=== PATIENT | male | born 1965 | race Caucasian/White ===

== ENCOUNTER 2017-01-02 04:27 | Emergency (ER) | payer OTHER ==
[~2017-01-02] VITALS: Ht 182.9 cm; Wt 87.6 kg
[~2017-01-02 04:27] MED LIST: ADVIL,NUPRIN,M200 MG PO; ASPIR-LOW81 MG PO; Aspirin E.C. PO; CHERATUSSIN AC473 ML PO; COUMADIN,JANTO7.5 MG PO; Ceftin PO; FLEXERIL10 MG PO; IBUPROFEN800 MG PO; LISINOPRIL20 MG PO; MOTRIN800 MG PO; Motrin PO; NAPROSYN500 MG PO; NAPROXEN500 MG PO; PERCOCET 5/31 TABLET PO; PRAVASTATIN SOD40 MG PO; PRINIVIL20 MG PO; Robitussin AC,Tussi- PO; TORADOL10 MG PO; VICODIN 5-3001 EACH PO; VOLTAREN75 MG PO; ZOFRAN ODT4 MG PO; Zithromax PO
[2017-01-02] MEDS ORDERED: MORPHINE SULFATE (05:43)
[2017-01-02] MEDS ORDERED: endocet (05:43)
[2017-01-02 06:43] VITALS: BP 145/89
== END 2017-01-02 06:45 | disposition home or self-care (01) ==
LOC: EME 04:27
DX: S80.12XA Contusion of left lower leg, initial encounter (principal); W01.0XXA Fall on same level from slipping, tripping and stumbling without subsequent striking against object, initial encounter; Y92.002 Bathroom of unspecified non-institutional (private) residence as the place of occurrence of the external cause
CPT/HCPCS: 73552; 99281; 99284

== ENCOUNTER 2017-01-08 04:21 | Emergency (ER) | payer OTHER ==
[~2017-01-08] VITALS: Ht 182.9 cm; Wt 84.5 kg
[~2017-01-08 04:21] MED LIST changes: +MORPHINE SULFATE; +endocet
[2017-01-08 05:24] VITALS: BP 147/98
== END 2017-01-08 05:28 | disposition home or self-care (01) ==
LOC: EME 04:21
DX: S83.92XA Sprain of unspecified site of left knee, initial encounter (principal); W19.XXXA Unspecified fall, initial encounter
CPT/HCPCS: 99281; 99284

== ENCOUNTER 2017-01-22 00:55 | Emergency (ER) | payer OTHER ==
[~2017-01-22] VITALS: Ht 182.9 cm; Wt 84.4 kg
[2017-01-22 02:06] LABS: HEMATOCRIT 39.6 % (38.0-50.0); MCH 31.2 PG (29.0-34.0); MCHC 33.8 G/DL (30.0-36.0); MCV 92.1 FL (86-99); MEAN PLAT.VOLUME 9.1 uM^3 (9.0-12.4); PLATELET COUNT 259 K/uL (156-360); RBC DIS.WIDTH-CV 12.3 % (11.8-14.6); RBC DIS.WIDTH-SD 41.6 % (39-53); WHITE BLOOD COUNT 7.4 K/uL (4.1-10.2)
[2017-01-22 02:16] LABS: CHLORIDE 103 mEq/L (99-109); SODIUM 139 mEq/L (136-147)
[2017-01-22 02:18] LABS: GLUCOSE 78 mg/dL (70-99)
[2017-01-22 02:19] LABS: ANION GAP 9 MEQ/L (2-14)
[2017-01-22 02:21] LABS: GFR ESTIMATE (CALCULATED) > 59 mL/min/
[2017-01-22 02:22] LABS: UREA NITROGEN (BUN) 15 mg/dL (9-23)
[2017-01-22 02:54] LABS: ADD MIUA? YES; BILIRUBIN NEGATIVE; BLOOD NEGATIVE; COLOR YELLOW ((YELLOW)); GLUCOSE (STRIP) NEGATIVE; KETONES 5; LEUKOCYTES NEGATIVE; NITRITE NEGATIVE; PROTEIN (STRIP) 30
[2017-01-22 03:02] LABS: BACTERIA 1+ /HPF; CALCIUM OXALATE CRYSTALS 3+ /HPF; EPITHELIAL CELLS RARE /HPF; MUCUS 2+ /LPF; RED BLOOD CELLS 0-5 /HPF (0-5); WHITE BLOOD CELLS 0-5 /HPF (0-5)
[2017-01-22 03:54] VITALS: BP 168/122
== END 2017-01-22 03:54 | disposition home or self-care (01) ==
LOC: EME 00:55
PROVIDERS: Emergency Medicine
DX: S39.92XA Unspecified injury of lower back, initial encounter (principal); W01.0XXA Fall on same level from slipping, tripping and stumbling without subsequent striking against object, initial encounter; R31.9 Hematuria, unspecified; I10 Essential (primary) hypertension; F32.9 Major depressive disorder, single episode, unspecified; Z86.718 Personal history of other venous thrombosis and embolism
CPT/HCPCS: 74176; 80048; 81003; 85027; 87086; 99281; 99284

== ENCOUNTER 2017-02-26 17:35 | Observation (INO) | payer OTHER ==
[~2017-02-26] VITALS: Ht 182.9 cm; Wt 84.6 kg
[~2017-02-26 17:35] MED LIST changes: +ENDOCET 5-3251 EACH PO; -LISINOPRIL20 MG PO; +LISINOPRIL30 MG PO; +MORPHINE SULFAT15 M1 PO; -MORPHINE SULFATE; -endocet
[2017-02-26 18:37] LABS: HEMATOCRIT 47.8 % (38.0-50.0); MCH 31.5 PG (29.0-34.0); MCHC 34.3 G/DL (30.0-36.0); MCV 91.7 FL (86-99); MEAN PLAT.VOLUME 9.1 uM^3 (9.0-12.4); PLATELET COUNT 440 K/uL (156-360); RBC DIS.WIDTH-CV 11.9 % (11.8-14.6); RBC DIS.WIDTH-SD 39.9 % (39-53); RED BLOOD COUNT 5.21 M/uL (4.00-5.50); WHITE BLOOD COUNT 7.5 K/uL (4.1-10.2)
[2017-02-26 18:44] LABS: D-DIMER ELISA < 150.00 ng/mLDDU (<230)
[2017-02-26 18:45] LABS: CHLORIDE 99 mEq/L (99-109); POTASSIUM 4.9 mEq/L (3.7-5.4); SODIUM 135 mEq/L (136-147)
[2017-02-26 18:47] LABS: GLUCOSE 89 mg/dL (70-99)
[2017-02-26 18:48] LABS: ANION GAP 7 MEQ/L (2-14)
[2017-02-26 18:50] LABS: GFR ESTIMATE (CALCULATED) > 59 mL/min/
[2017-02-26 18:51] LABS: UREA NITROGEN (BUN) 15 mg/dL (9-23)
[2017-02-26 18:59] LABS: TROP-I INTERPRETATION NEGATIVE; TROPONIN-I < 0.01 ng/mL (0.0-0.30)
[2017-02-26] MEDS ORDERED: PRAVACHOL40 MG PO (19:43)
[2017-02-26] MEDS ORDERED: ECOTRIN325 MG PO (19:44)
[2017-02-26] MEDS ORDERED: ONE-A-DAY ESSE1 EAC1 PO (19:44)
[2017-02-26] MEDS ORDERED: PAXIL40 MG PO (19:44)
[2017-02-26] MEDS ORDERED: PAXIL10 MG PO (19:44)
[2017-02-26 20:29] LABS: SERUM ETHYL ALCOHOL < 10 mg/dL
[2017-02-26 20:46] VITALS: BP 144/81
[2017-02-27 01:22] LABS: TROP-I INTERPRETATION NEGATIVE; TROPONIN-I < 0.01 ng/mL (0.0-0.30)
[2017-02-27 07:36] LABS: HDL CHOLESTEROL 49 MG/DL (Desirable>=40); LDL CHOLESTEROL 81 mg/dL (Desirable<100); NON-HDL CHOLESTEROL 105 mg/dL (Desirable<160); TOTAL CHOLESTEROL 154 mg/dL (Desirable<200); TRIGLYCERIDES 119 MG/DL (Normal: <150)
[2017-02-27 07:40] LABS: TROP-I INTERPRETATION NEGATIVE; TROPONIN-I < 0.01 ng/mL (0.0-0.30)
[2017-02-27] MEDS ORDERED: LOPRESSOR25 MG PO (09:50)
[2017-02-27] MEDS ORDERED: ASPIRIN81 M2 PO (09:50)
[2017-02-27 16:00] VITALS: BP 160/78
== END 2017-02-27 17:11 | disposition home or self-care (01) ==
LOC: EME 17:35 → EDOF 19:41 → 5WEST 19:41 → ENRESERV 19:42 → 5WEST 20:38
PROVIDERS: Physician Assistant Medical
DX: R07.89 Other chest pain (principal); G89.29 Other chronic pain; M94.0 Chondrocostal junction syndrome [Tietze]; I10 Essential (primary) hypertension; F41.9 Anxiety disorder, unspecified; F32.9 Major depressive disorder, single episode, unspecified; E78.5 Hyperlipidemia, unspecified; Z86.718 Personal history of other venous thrombosis and embolism; M19.90 Unspecified osteoarthritis, unspecified site; Z82.49 Family history of ischemic heart disease and other diseases of the circulatory system; Z79.82 Long term (current) use of aspirin
CPT/HCPCS: 71020; 80048; 80061; 80306 90; 81003; 84484; 85027; 85379; 93005; 99281; 99285; G0378; G0480; J1650; J1885; J2270

== ENCOUNTER 2017-06-04 19:54 | Emergency (ER) | payer OTHER ==
[~2017-06-04] VITALS: Ht 182.9 cm; Wt 85.8 kg
[~2017-06-04 19:54] MED LIST changes: +ASPIRIN81 M2 PO; +ECOTRIN325 MG PO; +LOPRESSOR25 MG PO; +ONE-A-DAY ESSE1 EAC1 PO; +PANTOPRAZOLE SO40 MG PO; +PAXIL10 MG PO; +PAXIL40 MG PO; +PRAVACHOL40 MG PO
[2017-06-04 20:18] LABS: HEMATOCRIT 46.1 % (38.0-50.0); MCHC 34.7 G/DL (30.0-36.0); MCV 89.3 FL (86-99); MEAN PLAT.VOLUME 9.3 uM^3 (9.0-12.4); PLATELET COUNT 420 K/uL (156-360); RBC DIS.WIDTH-CV 12.6 % (11.8-14.6); RBC DIS.WIDTH-SD 41.6 % (39-53); RED BLOOD COUNT 5.16 M/uL (4.00-5.50)
[2017-06-04 20:26] LABS: CHLORIDE 102 mEq/L (99-109); POTASSIUM 4.2 mEq/L (3.7-5.4); SODIUM 141 mEq/L (136-147)
[2017-06-04 20:28] LABS: GLUCOSE 100 mg/dL (70-99)
[2017-06-04 20:29] LABS: ANION GAP 12 MEQ/L (2-14)
[2017-06-04 20:31] LABS: GFR ESTIMATE (CALCULATED) > 59 mL/min/
[2017-06-04 20:32] LABS: UREA NITROGEN (BUN) 11 mg/dL (9-23)
[2017-06-04 20:48] LABS: TROP-I INTERPRETATION NEGATIVE; TROPONIN-I < 0.01 ng/mL (0.0-0.30)
[2017-06-04 22:49] LABS: TROP-I INTERPRETATION NEGATIVE; TROPONIN-I < 0.01 ng/mL (0.0-0.30)
[2017-06-04] MEDS ORDERED: ZOFRAN ODT4 MG PO (22:51)
[2017-06-04 23:15] VITALS: BP 154/81
== END 2017-06-04 23:17 | disposition home or self-care (01) ==
LOC: EME 19:54
PROVIDERS: Physician Assistant
DX: K92.0 Hematemesis (principal); R07.9 Chest pain, unspecified; I10 Essential (primary) hypertension; Z86.718 Personal history of other venous thrombosis and embolism
CPT/HCPCS: 71020; 80048; 84484; 85027; 86850; 86900; 86901; 93005; 99281; 99285; C9113; J2270; J2405; J7030

== ENCOUNTER → 2017-06-19 | Outpatient (CLI) | payer OTHER | END | disposition home or self-care (01) | LOC: NUC 06:35 | DX: R11.2 Nausea with vomiting, unspecified (principal) | CPT/HCPCS: 78264; A9541 ==

== ENCOUNTER 2017-10-30 20:38 | Emergency (ER) | payer OTHER ==
[~2017-10-30] VITALS: Ht 180.3 cm; Wt 87.9 kg
[2017-10-30 21:02] LABS: HEMATOCRIT 44.1 % (38.0-50.0); HEMOGLOBIN 15.1 G/DL (12.5-16.6); MCH 30.2 PG (29.0-34.0); MCHC 34.2 G/DL (30.0-36.0); MCV 88.2 FL (86-99); PLATELET COUNT 413 K/uL (156-360); RBC DIS.WIDTH-CV 12.6 % (11.8-14.6); RBC DIS.WIDTH-SD 40.9 % (39-53); WHITE BLOOD COUNT 6.8 K/uL (4.1-10.2)
[2017-10-30 21:11] LABS: CHLORIDE 107 mEq/L (99-109); SODIUM 140 mEq/L (136-147)
[2017-10-30 21:13] LABS: GLUCOSE 83 mg/dL (70-99)
[2017-10-30 21:17] LABS: CREATININE 0.8 mg/dL (0.6-1.3); GFR ESTIMATE (CALCULATED) > 59 mL/min/ (58.99-99999); UREA NITROGEN (BUN) 12 mg/dL (9-23)
[2017-10-30 21:23] LABS: TROP-I INTERPRETATION NEGATIVE; TROPONIN-I < 0.01 ng/mL (0.0-0.30)
[2017-10-30 21:48] LABS: D-DIMER ELISA < 150.00 ng/mLDDU (<230)
[2017-10-30 23:49] LABS: TROP-I INTERPRETATION NEGATIVE; TROPONIN-I < 0.01 ng/mL (0.0-0.30)
[2017-10-31 00:18] VITALS: BP 135/80
== END 2017-10-31 00:18 | disposition home or self-care (01) ==
LOC: EME 20:38
PROVIDERS: Emergency Medicine
DX: R07.9 Chest pain, unspecified (principal); M94.0 Chondrocostal junction syndrome [Tietze]; R42 Dizziness and giddiness; M79.602 Pain in left arm; I10 Essential (primary) hypertension; E78.00 Pure hypercholesterolemia, unspecified; Z86.718 Personal history of other venous thrombosis and embolism
CPT/HCPCS: 71046; 80048; 84484; 85027; 85379; 93005; 99281; 99285; J7030

== ENCOUNTER 2018-02-06 01:27 | Emergency (ER) | payer OTHER ==
[~2018-02-06] VITALS: Ht 182.9 cm; Wt 88.8 kg
[2018-02-06] MEDS ORDERED: NORCO 5/3251 TABLET PO (04:40)
[2018-02-06] MEDS ORDERED: LIDOCAINE700 MG TP (04:40)
[2018-02-06 05:00] VITALS: BP 139/102
== END 2018-02-06 05:01 | disposition home or self-care (01) ==
LOC: EME 01:27
DX: M54.5 Low back pain (principal); G89.29 Other chronic pain; M79.604 Pain in right leg; I10 Essential (primary) hypertension
CPT/HCPCS: 99281; 99284

== ENCOUNTER 2018-02-10 21:25 | Emergency (ER) | payer OTHER ==
[~2018-02-10] VITALS: Ht 180.3 cm; Wt 91.8 kg
[~2018-02-10 21:25] MED LIST changes: +LIDOCAINE700 MG TP; +NORCO 5/3251 TABLET PO
[2018-02-10] MEDS ORDERED: IBU600 MG PO (23:15)
[2018-02-10] MEDS ORDERED: FLEXERIL10 MG PO (23:15)
[2018-02-10] MEDS ORDERED: PREDNISONE50 MG PO (23:15)
[2018-02-11 00:03] VITALS: BP 140/88
== END 2018-02-11 00:03 | disposition home or self-care (01) ==
LOC: EME 21:25
DX: M54.16 Radiculopathy, lumbar region (principal); M54.31 Sciatica, right side; G89.29 Other chronic pain; I10 Essential (primary) hypertension; E78.5 Hyperlipidemia, unspecified; F41.9 Anxiety disorder, unspecified; F32.9 Major depressive disorder, single episode, unspecified
CPT/HCPCS: 99281; 99283; J1885; J7512